=== PATIENT | female | born 1990 | race African-American/Black ===

== ENCOUNTER 2022-02-18 23:17 | Emergency (ER) | payer BC ==
[~2022-02-18] VITALS: Ht 172.7 cm; Wt 100.3 kg
[2022-02-19] MEDS ORDERED: MAGNSOL17 PO (05:59)
[2022-02-19 06:00] VITALS: BP 145/91
[2022-02-19 06:52] LABS: Urine Bacteria FEW /hpf (None Seen); Urine Blood Negative /uL (Negative); Urine Specific Gravity 1.025 (1.001-1.035); Urine WBC 1 /hpf (0 - 5)
== END 2022-02-19 06:44 | disposition home or self-care (01) ==
LOC: ER 23:17
DX: K59.00 Constipation, unspecified (principal)
CPT/HCPCS: 74018; 81001